=== PATIENT | male | born 1970 | race Caucasian/White ===

== ENCOUNTER 2017-07-07 12:37 | Emergency (ER) | payer SELFPAY ==
[~2017-07-07] VITALS: Ht 157.5 cm; Wt 50.0 kg
[2017-07-07] MEDS ORDERED: SODIUM CHLORIDE 0.9% 500 ML IV ONE (14:24)
[2017-07-07] MEDS ORDERED: METHYLPREDNISOLONE SOD SUCC 125 MG/2 ML VIAL IV STA (14:24)
[2017-07-07] MEDS ORDERED: IPRATROPIUM/ALBUTEROL 0.5-3(2.5)MG/3ML NEB HHN ONE (14:30)
[2017-07-07] MEDS ORDERED: LEVOFLOXACIN 750MG PREMIX 150 ML IV ONE (14:30)
[2017-07-07 15:25] LABS: BASOPHILS % 0.5 % (0.0-2.0); EOSINOPHILS % 0.3 % (0.0-5.0); HEMATOCRIT. 43.7 % (42.0-52.0); HEMOGLOBIN. 15.5 g/dL (14.0-18.0); LYMPHOCYTES % 21.1 % (20.0-50.0); MEAN CORPUSCULAR HEMOGLOBIN 31.7 pg (28.0-32.0); MEAN CORPUSCULAR VOLUME 89.8 fL (80.0-94.0); MONOCYTES % 8.1 % (2.0-8.0); PLATELET 267 x1000/uL (130-400); RED BLOOD CELL COUNT 4.87 mill/uL (4.7-6.1); RED CELL DISTRIBUTION WIDTH 13.2 % (11.6-14.6)
[2017-07-07 15:32] LABS: CHLORIDE 109 mEq/L (98-107)
[2017-07-07 15:37] LABS: D-DIMER 0.4 mg/L FEU (<0.50); INR 1.1; PARTIAL THROMBOPLASTIN TIME 24.7 sec (23.4-31.0); PROTHROMBIN TIME 11.5 sec (9.4-11.6)
[2017-07-07 15:39] LABS: CREATINE KINASE 150 IU/L (39-308)
[2017-07-07 15:40] LABS: BG BASE EXCESS 0.9 mmol/L (-2.0-2.0); BG CARBOXYHEMOGLOBIN 0.7 % (0.5-1.5); BG DEOXYHEMOGLOBIN 1.2 % (0.0-5.0); BG FRACTION INSPIRED OXYGEN 21; BG HCO3 ACT 18.5 mmol/L (22.0-26.0); BG METHEMOGLOBIN 0.3 % (0.0-1.5); BG OXYGEN SATURATION 98.8 % (92.0-98.5); BG OXYHEMOGLOBIN 97.8 % (94.0-97.0); BG PCO2 17.3 mmHg (35.0-45.0); BG PH 7.646 (7.350-7.450); BG PO2 109.8 mmHg (75.0-100.0); BG SAMPLE SITE LEFT BRACHIAL; BG TOTAL HEMOGLOBIN 15.9 g/dL (12.0-18.0); BG VENT MODE ROOM AIR
[2017-07-07] MEDS ORDERED: KETOROLAC 30MG/ML VIAL IV ONE (16:45)
[2017-07-07 17:19] LABS: *AMPHETAMINES SCREEN URINE NEGATIVE (NEGATIVE); *BARBITURATES SCREEN URINE NEGATIVE (NEGATIVE); *BENZODIAZEPINES SCREEN URINE NEGATIVE (NEGATIVE); *COCAINE SCREEN URINE NEGATIVE (NEGATIVE); CANNABINOID URINE SCREEN NEGATIVE (NEGATIVE); METHADONE URINE SCREEN NEGATIVE (NEGATIVE); OPIATES URINE SCREEN NEGATIVE (NEGATIVE); PHENCYCLIDINE URINE SCREEN NEGATIVE (NEGATIVE)
[2017-07-07 19:50] VITALS: BP 137/70
== END 2017-07-07 19:50 | disposition home or self-care (01) ==
LOC: ER 13:33 → CANBEDREQ 22:05
DX: J40 Bronchitis, not specified as acute or chronic (principal); Z87.01 Personal history of pneumonia (recurrent)
CPT/HCPCS: 36415; 36600; 71045; 80053; 80305; 82375; 82550; 82805; 83605; 83690; 83880; 84484; 85025; 85379; 85610; 85730; 87040; 93005; 94640; 96365; 96375; 99285; J1885; J1956; J2930; J7040; J7620; Z7610

== ENCOUNTER 2017-07-12 14:44 | Emergency (ER) | payer SELFPAY ==
[~2017-07-12] VITALS: Ht 162.6 cm; Wt 72.0 kg
[2017-07-12] MEDS ORDERED: ASPIRIN 81MG TABLET PO ONE (15:45)
[2017-07-12] MEDS ORDERED: LORAZEPAM 1MG TABLET PO ONE (15:45)
[2017-07-12 16:44] LABS: BASOPHILS % 0.8 % (0.0-2.0); EOSINOPHILS % 1.4 % (0.0-5.0); HEMATOCRIT. 42.1 % (42.0-52.0); HEMOGLOBIN. 14.5 g/dL (14.0-18.0); LYMPHOCYTES % 25.3 % (20.0-50.0); MEAN CORPUSCULAR HEMOGLOBIN 31.3 pg (28.0-32.0); MEAN CORPUSCULAR VOLUME 90.6 fL (80.0-94.0); MEAN PLATELET VOLUME 8.4 fl (7.4-10.4); MONOCYTES % 9.8 % (2.0-8.0); NEUTROPHILS % 62.7 % (40.0-76.0); PLATELET 249 x1000/uL (130-400); RED BLOOD CELL COUNT 4.65 mill/uL (4.7-6.1); RED CELL DISTRIBUTION WIDTH 13.3 % (11.6-14.6)
[2017-07-12 16:48] LABS: INR 1.1; PROTHROMBIN TIME 11.6 sec (9.4-11.6)
[2017-07-12 16:50] LABS: CHLORIDE 110 mEq/L (98-107)
[2017-07-12 17:56] VITALS: BP 124/72
== END 2017-07-12 18:01 | disposition home or self-care (01) ==
LOC: ER 17:08
DX: F41.9 Anxiety disorder, unspecified (principal); Z79.82 Long term (current) use of aspirin
CPT/HCPCS: 36415; 71045; 80053; 83880; 84484; 85025; 85610; 93005; 99285; Z7610

== ENCOUNTER 2017-07-19 14:11 | Emergency (ER) | payer SELFPAY ==
[~2017-07-19] VITALS: Ht 162.6 cm; Wt 69.0 kg
[2017-07-19 21:35] VITALS: BP 132/76
== END 2017-07-19 21:36 | disposition home or self-care (01) ==
LOC: ER 15:26
DX: F41.9 Anxiety disorder, unspecified (principal)
CPT/HCPCS: 71045; 93005; 99284

== ENCOUNTER 2018-01-19 14:27 | Emergency (ER) | payer SELFPAY ==
[~2018-01-19] VITALS: Ht 172.7 cm; Wt 70.0 kg
[2018-01-19] MEDS ORDERED: ASPIRIN 81MG TABLET PO ONE (16:15)
[2018-01-19 16:54] LABS: BASOPHILS % 0.5 % (0.0-2.0); EOSINOPHILS % 1.6 % (0.0-5.0); HEMATOCRIT. 43.5 % (42.0-52.0); MEAN CORPUSCULAR HEMOGLOBIN 30.8 pg (28.0-32.0); MEAN CORPUSCULAR VOLUME 89.1 fL (80.0-94.0); MEAN PLATELET VOLUME 8.7 fl (7.4-10.4); MONOCYTES % 10.7 % (2.0-8.0); NEUTROPHILS % 61.2 % (40.0-76.0); PLATELET 222 x1000/uL (130-400); RED BLOOD CELL COUNT 4.88 mill/uL (4.7-6.1); RED CELL DISTRIBUTION WIDTH 12.9 % (11.6-14.6)
[2018-01-19 16:59] LABS: CHLORIDE 107 mEq/L (98-107)
[2018-01-19 19:48] VITALS: BP 138/78
== END 2018-01-19 19:51 | disposition home or self-care (01) ==
LOC: ER 14:27
DX: R07.89 Other chest pain (principal)
CPT/HCPCS: 36415; 71045; 80053; 84484; 85025; 93005; 99285

== ENCOUNTER 2018-06-02 14:57 | Emergency (ER) | payer SELFPAY ==
[~2018-06-02] VITALS: Ht 167.6 cm; Wt 70.0 kg
[2018-06-02] MEDS ORDERED: SODIUM CHLORIDE 0.9% 1,000 ML IV ONE (21:24)
[2018-06-02 22:02] LABS: BASOPHILS % 0.3 % (0.0-2.0); EOSINOPHILS % 0.8 % (0.0-5.0); HEMATOCRIT. 45.7 % (42.0-52.0); HEMOGLOBIN. 16.1 g/dL (14.0-18.0); LYMPHOCYTES % 30.3 % (20.0-50.0); MEAN CORPUSCULAR HEMOGLOBIN 31.5 pg (28.0-32.0); MEAN CORPUSCULAR VOLUME 89.4 fL (80.0-94.0); MONOCYTES % 10.7 % (2.0-8.0); NEUTROPHILS % 57.9 % (40.0-76.0); PLATELET 212 x1000/uL (130-400); RED BLOOD CELL COUNT 5.11 mill/uL (4.7-6.1); RED CELL DISTRIBUTION WIDTH 12.9 % (11.6-14.6)
[2018-06-02 22:04] LABS: CHLORIDE 110 mEq/L (98-107)
[2018-06-02 22:06] LABS: INR 1.1; PARTIAL THROMBOPLASTIN TIME 27.5 sec (23.4-31.0); PROTHROMBIN TIME 11.2 sec (9.1-11.1)
[2018-06-02 22:08] LABS: ETHANOL BLOOD < 10 mg/dL
[2018-06-02 23:44] VITALS: BP 128/82
[2018-06-03 00:19] LABS: *AMPHETAMINES SCREEN URINE NEGATIVE (NEGATIVE); *BARBITURATES SCREEN URINE NEGATIVE (NEGATIVE); *BENZODIAZEPINES SCREEN URINE NEGATIVE (NEGATIVE); *COCAINE SCREEN URINE NEGATIVE (NEGATIVE); METHADONE URINE SCREEN NEGATIVE (NEGATIVE); OPIATES URINE SCREEN NEGATIVE (NEGATIVE)
[2018-06-03 00:21] LABS: CANNABINOID URINE SCREEN NEGATIVE (NEGATIVE); PHENCYCLIDINE URINE SCREEN NEGATIVE (NEGATIVE)
== END 2018-06-03 00:47 | disposition home or self-care (01) ==
LOC: ER 14:57
DX: R07.9 Chest pain, unspecified (principal); F41.1 Generalized anxiety disorder; F45.8 Other somatoform disorders; R00.2 Palpitations; R42 Dizziness and giddiness; R06.00 Dyspnea, unspecified; R51 Headache
CPT/HCPCS: 36415; 70450; 71045; 80053; 80305; 83735; 83880; 84484; 85025; 85610; 85730; 87186; 93005; 96360; 99284; J7030; Z7610

== ENCOUNTER 2018-07-27 00:51 | Emergency (ER) | payer SELFPAY ==
[~2018-07-27] VITALS: Ht 170.2 cm; Wt 75.0 kg
[2018-07-27] MEDS ORDERED: ALPRAZOLAM 0.25 MG TABLET PO ONE (03:45)
[2018-07-27 04:35] VITALS: BP 127/89
== END 2018-07-27 04:37 | disposition home or self-care (01) ==
LOC: ER 00:51
DX: F41.8 Other specified anxiety disorders (principal); Z63.5 Disruption of family by separation and divorce
CPT/HCPCS: 99284